=== PATIENT | female | born 1960 | race Caucasian/White ===

== ENCOUNTER → 2016-06-15 | Outpatient (CLI) | payer MEDICARE ==
[~2016-06-15] MED LIST: ALBUTEROL SULFAT3 M3 IH; ALLEGRA 180MG180 MG SQ; ALLEGRA30 MG PO; AMITRIPTYLINE H50 M1 PO; AMOXICILLIN 50500 MG PO; BENADRYL25 MG PO; BENADRYL50 MG PO; BIAXIN 250MG T250 MG PO; BIAXIN FILMTAB500 MG PO; BIAXIN250 MG PO; BUTORPHANOL10 MG/M1 NS; CAL-CITRATE PLU1 TAB PO; CALCIUM + D 6001 TA1 PO; CALCIUM W/VITAM1 TAB PO; CARAFATE S1 GM/10 ML PO; CIPRO 500MG TA500 MG PO; CLEOCIN HC150 MG/CAP PO; CLEOCIN HCL300 MG PO; COUMADIN 1MG1 MG/TAB PO; COUMADIN 3MG3 MG/TAB PO; COUMADIN 6MG6 MG/TAB PO; COUMADIN1 MG PO; COUMADIN4 MG PO; DARVOCET N; DARVOCET N 101 UDTAB PO; DARVOCET-N-101 UDTAB PO; DILAUDID 2MG TAB2 MG PO; DILAUDID 4MG TAB4 MG PO; DOXYCYCLINE 10100 MG PO; ELAVIL10 MG PO; ELITE MAGNESIUM1 TAB PO; FISH OIL1 IU PO; FLAGYL500 MG PO; FLEXERIL 1010 MG/TAB PO; FLEXERIL10 MG PO; GAMUNEX-C1 GM/10 ML IJ; GUAIFENESIN DM118 ML PO; K-DUR 10 MEQ T10 MEQ PO; K-DUR 2020 MEQ PO; KEPPRA 500MG500 MG PO; KEPPRA250 MG PO; KLONOPIN 1MG1 MG PO; KLOR-CON 1010 MEQ; LAMICTAL25 MG PO; LASIX 20MG TABL20 MG PO; LASIX 40MG TABL40 MG PO; LEVAQUIN 250MG250 MG PO; LEVAQUIN 5500 MG/TA1 PO; LEVAQUIN 5500 MG/TAB PO; LEVAQUIN 750MG750 M1 PO; LEVAQUIN250 MG PO; LIPITOR 10MG10 MG PO; LIPITOR 40MG TA40 MG PO; LORTAB 5/500 501 TAB PO; LOVENOX 100100 MG/ML SQ; LOVENOX 8080 MG/0.8 SQ; LOVENOX120 MG/0.8 SQ; LYRICA50 MG PO; M2 MAGNESIUM100 MG PO; MAG-OX 400400 MG PO; MAGNESIUM250 M1 PO; MICRO-K 1010 MEQ PO; MINOCYCLIN100 MG/CAP PO; MUCINEX 60600 MG/TA1 PO; MULTI VITAMINS1 TAB PO; MULTIPLE VITAMI1 TAB PO; NEURONTIN300 MG/CAP PO; NEURONTIN400 MG/CAP PO; NITROSTAT0.4 MG/TAB SL; OMNICEF 300MG300 MG PO; OXYCODONE; OXYCODONE20 MG PO; OXYCONTIN 20MG20 MG PO; OXYCONTIN10 MG PO; OXYCONTIN20 MG PO; OXYCONTIN30 MG PO; OXYCONTIN40 MG PO; PEPCID 20MG TAB20 MG PO; PERCOCET 325 MG1 TA2 PO; PHENERGAN 25 TA25 MG PO; PHENERGAN W/CO120 M1 PO; PHENERGAN25 MG RC; POTASSIUM CH2 MEQ/ML PO; PREDNISONE10 MG PO; PROMETHAZINE12.5 M5 PO; PROZAC 10MG10 MG PO; ROXICODONE15 MG PO; STADOL NASA25 MG/BOT NS; STADOL NS10 MG/ML NS; SUDAFED30 MG PO; SUPER EPA 1201200 MG PO; TESSALON P100 MG/CAP PO; TESSALON PERLE200 MG PO; TOPROL XL 50MG50 MG PO; TOPROL XL100 MG PO; TOPROL XL50 MG PO; TRICOR145 MG PO; TYLENOL 325MG325 MG PO; ULTRAM 50MG TAB50 MG PO; ULTRAM50 MG PO; VALIUM 5MG T5 MG/TAB PO; VENTOLIN0.09 MG IH; ZETIA 10MG TAB10 MG PO; ZINC10 M1 PO; ZINC50 M1 PO; ZITHROMAX Z PA250 MG PO; ZOCOR 10MG10 MG PO; ZOCOR10 MG PO; ZOCOR40 MG PO; ZOFRAN 4MG T4 MG/TAB PO; ZOFRAN ODT4 MG PO; ZONEGRAN 100MG100 MG; ZONEGRAN 100MG100 MG PO; ZYRTEC 10MG PO; ZYRTEC 10MG10 MG PO; ZYRTEC10 MG PO; [UNRECOGNIZED DRUG - OTHER]; [UNRECOGNIZED DRUG - OTHER] SQ; [UNRECOGNIZED DRUG - OTHER] SQ
== END ==
LOC: COL.RAD 06-11 11:30
DX: J84.10 Pulmonary fibrosis, unspecified (principal)
CPT/HCPCS: Q9967

== ENCOUNTER 2016-07-22 15:14 | Emergency (ER) | payer MEDICARE ==
[~2016-07-22] VITALS: Ht 162.6 cm; Wt 72.7 kg
[~2016-07-22 15:14] MED LIST changes: -NEURONTIN300 MG/CAP PO; -NEURONTIN400 MG/CAP PO
[2016-07-22 15:21] VITALS: TEMP 98.8
[2016-07-22 17:26] VITALS: BP 144/80; PULSE 88
== END 2016-07-22 17:32 | disposition home or self-care (01) ==
LOC: COL.ER 15:14
DX: G43.909 Migraine, unspecified, not intractable, without status migrainosus (principal)
CPT/HCPCS: J0595; J1170; J2550; J7030

== ENCOUNTER 2016-09-10 15:38 | Emergency (ER) | payer MEDICARE ==
[~2016-09-10] VITALS: Ht 160 cm; Wt 68.2 kg
[2016-09-10 15:42] VITALS: BP 165/91; TEMP 98.6
[2016-09-10 16:47] LABS: BASO # 0.1 (0.0-0.2); BASO % 0.3 % (0.0-2.0); GRAN # 14.6 (1.4-6.5); GRAN % 88.7 % (42.2-75.2); HEMATOCRIT 41.3 % (37.0-47.0); LYMPH % 6.2 % (20.0-51.0); MEAN CELL VOLUME 87 fl (80.0-100.0); MEAN CORPUSCULAR HEMOGLOBIN 30 pg (27.0-31.0); MEAN CORPUSCULAR HGB CONC 34 g/dl (33.0-37.0); MEAN PLATELET VOLUME 10.3 fl (7.4-10.4); MONO # 0.7 (0.1-0.6); MONO % 4.3 % (1.7-9.3); PLATELET COUNT 468 K/mm3 (130-400); RED BLOOD COUNT 4.75 M/mm3 (4.10-5.30); WHITE BLOOD COUNT 16.5 K/mm3 (4.8-10.8)
[2016-09-10 16:58] LABS: ADJUSTED CALCIUM 9.6 mg/dL (8.4-10.2); ALBUMIN 4.9 gm/dL (3.5-5.0); BILIRUBIN,TOTAL 0.8 mg/dL (0.0-1.0); CALCIUM 10.3 mg/dL (8.4-10.2); CREATININE, serum 0.71 mg/dL (0.52-1.25); POTASSIUM 3.4 mmol/L (3.4-5.0); TOTAL PROTEIN 8.4 gm/dL (6.4-8.2)
[2016-09-10] MEDS ORDERED: PHENERGAN 25 TA25 MG PO (17:45)
[2016-09-10 18:38] VITALS: PULSE 79
== END 2016-09-10 18:40 | disposition home or self-care (01) ==
LOC: COL.ER 15:38
PROVIDERS: Physician Assistant
DX: G43.909 Migraine, unspecified, not intractable, without status migrainosus (principal); B34.9 Viral infection, unspecified; R11.2 Nausea with vomiting, unspecified; F17.210 Nicotine dependence, cigarettes, uncomplicated; Z95.2 Presence of prosthetic heart valve; Z79.01 Long term (current) use of anticoagulants; R05 Cough; R19.7 Diarrhea, unspecified
CPT/HCPCS: J1170; J2405; J2550; J7030; J7040

== ENCOUNTER 2016-09-22 15:13 | Inpatient (IN) | payer MEDICARE ==
[~2016-09-22] VITALS: Ht 160 cm; Wt 76.4 kg
[2016-09-22] VITALS (341 sets, daily range): BP systolic 103–111; BP diastolic 50–59; PULSE 77–80; TEMP 97.5–97.6; O2SAT 89–99
[2016-09-22 16:01] LABS: ARTERIAL BLD GAS TCO2 CT 29.9; ARTERIAL BLOOD GAS BASE EXCESS 0.6 (-2-2); ARTERIAL BLOOD GAS HCO3 28.1 meq/L (22-26); ARTERIAL BLOOD GAS PO2 61.9 mmHg (80-100); ARTERIAL BLOOD GAS PO2T 61.9 (80-100); OXYHEMOGLOBIN 87.9 %
[2016-09-22 16:02] LABS: ATS? YES
[2016-09-22 16:11] LABS: BASO % 0.5 % (0.0-2.0); EOS # 0.3 (0.0-0.7); EOS % 3.3 % (0-4.0); GRAN % 70.2 % (42.2-75.2); HEMATOCRIT 37.5 % (37.0-47.0); HEMOGLOBIN 12.3 g/dl (12.5-16.0); LYMPH # 1.6 (1.2-3.4); LYMPH % 18.7 % (20.0-51.0); MEAN CELL VOLUME 91 fl (80.0-100.0); MEAN CORPUSCULAR HEMOGLOBIN 30 pg (27.0-31.0); MEAN CORPUSCULAR HGB CONC 33 g/dl (33.0-37.0); MONO # 0.6 (0.1-0.6); MONO % 7.1 % (1.7-9.3); PLATELET COUNT 322 K/mm3 (130-400); RED BLOOD COUNT 4.14 M/mm3 (4.10-5.30); REDCELL DISTRIBUTION WIDTH-CV 13.7 % (11.5-14.5); WHITE BLOOD COUNT 8.5 K/mm3 (4.8-10.8)
[2016-09-22 16:18] LABS: ADJUSTED CALCIUM 9.1 mg/dL (8.4-10.2); ALANINE AMINOTRANSFERASE 27 U/L (9-52); ALBUMIN 4.2 gm/dL (3.5-5.0); ALKALINE PHOSPHATASE 111 U/L (50-136); ANION GAP 10 mmol/L (7-16); BILIRUBIN,TOTAL 0.5 mg/dL (0.0-1.0); BLOOD UREA NITROGEN 8 mg/dL (7-17); C-REACTIVE PROTEIN 1.7 mg/dL (0.0-0.9); CALCIUM 9.3 mg/dL (8.4-10.2); CARBON DIOXIDE 29 mmol/L (22-30); CHLORIDE 100 mmol/L (98-107); CREATININE, serum 0.96 mg/dL (0.52-1.25); GLUCOSE 102 mg/dL (74-106); POTASSIUM 3.7 mmol/L (3.4-5.0); SODIUM 139 mmol/L (137-145); TOTAL PROTEIN 7.1 gm/dL (6.4-8.2)
[2016-09-22 16:27] LABS: INR 3.7 (0.8-3.0); PROTHROMBIN TIME 42.8 SECONDS (9.7-12.8)
[2016-09-22 16:28] LABS: TROPONIN-I < 0.012 ng/mL (0.000-0.034)
[2016-09-22 16:30] LABS: PARTIAL THROMBOPLASTIN TIME 56.7 SECONDS (26.0-37.0)
[2016-09-22 17:57] LABS: PH 5 (5-8); SQUAMOUS EPITHELIAL 0-2 /hpf; URINE APPEARANCE Clear; URINE BACTERIA None Seen /hpf; URINE BILIRUBIN Negative (NEGATIVE); URINE BLOOD Negative (NEGATIVE); URINE COLOR Yellow; URINE GLUCOSE Negative (NEGATIVE); URINE KETONE Negative (NEGATIVE); URINE RBC 0-2 /hpf; URINE UROBILINOGEN Negative (NEGATIVE); URINE WBC 0-2 /hpf
[2016-09-22 18:11] LABS: AMPHETAMINE URINE NEGATIVE; BARBITURATES URINE NEGATIVE; BENZODIAZEPINES URINE POSITIVE; BUPRENORPHINE URINE NEGATIVE; METHADONE URINE NEGATIVE; OPIATES URINE NEGATIVE; OXYCODONE URINE POSITIVE; PHENCYCLIDINE URINE NEGATIVE; PROPOXYPHENE URINE NEGATIVE; THC CANNABINOIDS URINE NEGATIVE
[2016-09-23] VITALS (510 sets, daily range): BP systolic 85–124; BP diastolic 53–72; PULSE 75–98; TEMP 97.9–98.9; O2SAT 87–100
[2016-09-23 06:05] LABS: BASO % 0.5 % (0.0-2.0); EOS # 0.2 (0.0-0.7); EOS % 3.7 % (0-4.0); GRAN # 3.6 (1.4-6.5); GRAN % 66.6 % (42.2-75.2); LYMPH # 1.1 (1.2-3.4); LYMPH % 20.8 % (20.0-51.0); MEAN CELL VOLUME 92 fl (80.0-100.0); MEAN CORPUSCULAR HGB CONC 33 g/dl (33.0-37.0); MEAN PLATELET VOLUME 10.7 fl (7.4-10.4); MONO # 0.4 (0.1-0.6); PLATELET COUNT 264 K/mm3 (130-400); RED BLOOD COUNT 3.68 M/mm3 (4.10-5.30); REDCELL DISTRIBUTION WIDTH-CV 14.1 % (11.5-14.5); WHITE BLOOD COUNT 5.5 K/mm3 (4.8-10.8)
[2016-09-23 06:06] LABS: HEMATOCRIT 33.7 % (37.0-47.0); MEAN CORPUSCULAR HEMOGLOBIN 30 pg (27.0-31.0)
[2016-09-23 06:17] LABS: CALCIUM 8.5 mg/dL (8.4-10.2); CREATININE, serum 0.8 mg/dL (0.52-1.25); POTASSIUM 3.8 mmol/L (3.4-5.0)
[2016-09-23 06:26] LABS: PROTHROMBIN TIME 46.2 SECONDS (9.7-12.8)
[2016-09-23] MEDS ORDERED: NEURONTIN400 MG/CAP PO (14:31)
[2016-09-23] MEDS ORDERED: COUMADIN 3MG3 MG/TAB PO (14:39)
== END 2016-09-23 16:59 | disposition home or self-care (01) | DRG 917 ==
LOC: COL.ER 15:13 → IMCU 17:21 → MEDICAL 09-23 09:46
PROVIDERS: Emergency Medicine; Family Medicine
DX: T40.2X1A Poisoning by other opioids, accidental (unintentional), initial encounter (principal); J96.01 Acute respiratory failure with hypoxia; J96.02 Acute respiratory failure with hypercapnia; D80.1 Nonfamilial hypogammaglobulinemia; T42.4X1A Poisoning by benzodiazepines, accidental (unintentional), initial encounter; R41.82 Altered mental status, unspecified; G43.909 Migraine, unspecified, not intractable, without status migrainosus; F17.210 Nicotine dependence, cigarettes, uncomplicated; Z95.2 Presence of prosthetic heart valve; Z86.73 Personal history of transient ischemic attack (TIA), and cerebral infarction without residual deficits; Z79.01 Long term (current) use of anticoagulants
CPT/HCPCS: 99223-AI; 99239; J2310; J2405; J7030

== ENCOUNTER → 2016-09-27 | Outpatient (CLI) | payer MEDICARE ==
[~2016-09-27] MED LIST changes: +NEURONTIN300 MG/CAP PO; +NEURONTIN400 MG/CAP PO
== END ==
LOC: MC.RAD 10:40
DX: Z12.31 Encounter for screening mammogram for malignant neoplasm of breast (principal)

== ENCOUNTER 2017-01-01 15:54 | Inpatient (IN) | payer MEDICARE ==
[~2017-01-01] VITALS: Ht 160 cm; Wt 76.9 kg
[2017-01-01] VITALS (242 sets, daily range): BP systolic 121–132; BP diastolic 74–87; PULSE 85–91; TEMP 97.1; O2SAT 94–100
[~2017-01-01 15:54] MED LIST changes: -NEURONTIN300 MG/CAP PO
[2017-01-01 16:54] LABS: ARTERIAL BLD GAS O2 SATURATION 87.9 % (92-100); ARTERIAL BLD GAS TCO2 CT 29.7; ARTERIAL BLOOD GAS BASE EXCESS 0.8 (-2-2); ARTERIAL BLOOD GAS PHT 7.31 C (7.35-7.45); ARTERIAL BLOOD GAS pH 7.31 (7.35-7.45); OXYHEMOGLOBIN 85.8 %
[2017-01-01 16:55] LABS: ATS? YES
[2017-01-01 17:15] LABS: BASO # 0.1 (0.0-0.2); BASO % 0.5 % (0.0-2.0); EOS # 0.5 (0.0-0.7); EOS % 4.9 % (0-4.0); GRAN # 6.4 (1.4-6.5); GRAN % 68.7 % (42.2-75.2); HEMATOCRIT 37.1 % (37.0-47.0); HEMOGLOBIN 12.1 g/dl (12.5-16.0); LYMPH # 1.4 (1.2-3.4); LYMPH % 15.4 % (20.0-51.0); MEAN CELL VOLUME 89 fl (80.0-100.0); MEAN CORPUSCULAR HEMOGLOBIN 29 pg (27.0-31.0); MEAN CORPUSCULAR HGB CONC 33 g/dl (33.0-37.0); MONO % 10.1 % (1.7-9.3); PLATELET COUNT 312 K/mm3 (130-400); RED BLOOD COUNT 4.17 M/mm3 (4.10-5.30); REDCELL DISTRIBUTION WIDTH-CV 13.9 % (11.5-14.5); WHITE BLOOD COUNT 9.4 K/mm3 (4.8-10.8)
[2017-01-01 17:31] LABS: ADJUSTED CALCIUM 8.9 mg/dL (8.4-10.2); ALANINE AMINOTRANSFERASE 24 U/L (9-52); ALBUMIN 4.1 gm/dL (3.5-5.0); ALKALINE PHOSPHATASE 119 U/L (50-136); ANION GAP 9 mmol/L (7-16); BILIRUBIN,TOTAL 0.9 mg/dL (0.0-1.0); BLOOD UREA NITROGEN 7 mg/dL (7-17); CARBON DIOXIDE 27 mmol/L (22-30); CHLORIDE 100 mmol/L (98-107); CREATININE, serum 0.79 mg/dL (0.52-1.25); GLUCOSE 93 mg/dL (74-106); POTASSIUM 3.9 mmol/L (3.4-5.0); SODIUM 136 mmol/L (137-145)
[2017-01-01 17:34] LABS: AMPHETAMINE URINE NEGATIVE; BARBITURATES URINE NEGATIVE; BENZODIAZEPINES URINE POSITIVE; BUPRENORPHINE URINE NEGATIVE; METHADONE URINE NEGATIVE; OPIATES URINE POSITIVE; OXYCODONE URINE POSITIVE; PHENCYCLIDINE URINE NEGATIVE; PROPOXYPHENE URINE NEGATIVE; THC CANNABINOIDS URINE NEGATIVE
[2017-01-01 17:40] LABS: ACETAMINOPHEN < 10 ug/mL (10-30); SALICYLATE < 1.0 mg/dL
[2017-01-01 17:41] LABS: B-TYPE NATRIURETIC PEPTIDE 283 pg/mL (0-125)
[2017-01-01 17:43] LABS: TROPONIN-I < 0.012 ng/mL (0.000-0.034)
[2017-01-01 17:46] LABS: INR 2.7 (0.8-3.0); PROTHROMBIN TIME 31.6 SECONDS (9.7-12.8)
[2017-01-01 22:54] LABS: PH 5 (5-8); SQUAMOUS EPITHELIAL 0-2 /hpf; URINE APPEARANCE Clear; URINE BACTERIA None Seen /hpf; URINE BILIRUBIN Negative (NEGATIVE); URINE BLOOD 1+ (NEGATIVE); URINE COLOR Straw; URINE GLUCOSE Negative (NEGATIVE); URINE KETONE Negative (NEGATIVE); URINE RBC 0-2 /hpf; URINE UROBILINOGEN Negative (NEGATIVE); URINE WBC 0-2 /hpf
[2017-01-02] VITALS (734 sets, daily range): BP systolic 126–158; BP diastolic 65–92; PULSE 86–106; TEMP 97–98.6; O2SAT 96–100
[2017-01-02 06:15] LABS: BASO % 0.6 % (0.0-2.0); EOS # 0.3 (0.0-0.7); EOS % 4.8 % (0-4.0); GRAN % 72.9 % (42.2-75.2); LYMPH # 0.9 (1.2-3.4); LYMPH % 13.2 % (20.0-51.0); MEAN CELL VOLUME 90 fl (80.0-100.0); MEAN CORPUSCULAR HGB CONC 33 g/dl (33.0-37.0); MEAN PLATELET VOLUME 10.1 fl (7.4-10.4); MONO # 0.6 (0.1-0.6); MONO % 8.2 % (1.7-9.3); PLATELET COUNT 285 K/mm3 (130-400); RED BLOOD COUNT 3.99 M/mm3 (4.10-5.30); WHITE BLOOD COUNT 6.9 K/mm3 (4.8-10.8)
[2017-01-02 06:16] LABS: HEMOGLOBIN 11.7 g/dl (12.5-16.0); MEAN CORPUSCULAR HEMOGLOBIN 29 pg (27.0-31.0)
[2017-01-02 06:31] LABS: CALCIUM 8.6 mg/dL (8.4-10.2); CREATININE, serum 0.62 mg/dL (0.52-1.25); MAGNESIUM 1.5 mg/dL (1.6-2.3); POTASSIUM 3.5 mmol/L (3.4-5.0)
[2017-01-02 08:38] LABS: ARTERIAL BLD GAS TCO2 CT 26.9; ARTERIAL BLOOD GAS BASE EXCESS -0.3 (-2-2); ARTERIAL BLOOD GAS HCO3 25.5 meq/L (22-26); ARTERIAL BLOOD GAS PHT 7.36 C (7.35-7.45); ARTERIAL BLOOD GAS PO2 88.2 mmHg (80-100); ARTERIAL BLOOD GAS PO2T 88.2 (80-100); ARTERIAL BLOOD GAS pH 7.36 (7.35-7.45); OXYHEMOGLOBIN 95.2 %
[2017-01-02 08:39] LABS: ATS? YES
[2017-01-02] MEDS ORDERED: NEURONTIN300 MG/CAP PO (16:27)
[2017-01-02] MEDS ORDERED: COUMADIN4 MG PO (16:55)
[2017-01-03 04:22] VITALS: BP 118/83; PULSE 84; TEMP 97.9
[2017-01-03 06:57] LABS: INR 2.2 (0.8-3.0); PROTHROMBIN TIME 25.5 SECONDS (9.7-12.8)
[2017-01-03 07:09] LABS: CALCIUM 8.6 mg/dL (8.4-10.2); CREATININE, serum 0.57 mg/dL (0.52-1.25); MAGNESIUM 1.9 mg/dL (1.6-2.3); POTASSIUM 3.1 mmol/L (3.4-5.0)
[2017-01-03 07:50] VITALS: BP 142/81; PULSE 79; TEMP 98.5
== END 2017-01-03 12:55 | disposition home or self-care (01) | DRG 917 ==
LOC: COL.ER 15:54 → ICU 17:52 → COL.ER 17:52 → MEDICAL 01-02 14:18
PROVIDERS: Emergency Medicine; Internal Medicine
DX: T42.6X1A Poisoning by other antiepileptic and sedative-hypnotic drugs, accidental (unintentional), initial encounter (principal); J96.02 Acute respiratory failure with hypercapnia; J96.01 Acute respiratory failure with hypoxia; D80.1 Nonfamilial hypogammaglobulinemia; L03.116 Cellulitis of left lower limb; F17.210 Nicotine dependence, cigarettes, uncomplicated; F11.90 Opioid use, unspecified, uncomplicated; Z79.01 Long term (current) use of anticoagulants; Z95.2 Presence of prosthetic heart valve; Z86.73 Personal history of transient ischemic attack (TIA), and cerebral infarction without residual deficits
CPT/HCPCS: 90791-AI; 99223-AI; 99233-AI; J3370; J3475; J7030; J7050

== ENCOUNTER 2017-09-04 12:38 | Emergency (ER) | payer OTHER, MEDICARE ==
[~2017-09-04] VITALS: Ht 160 cm; Wt 75.9 kg
[~2017-09-04 12:38] MED LIST changes: +NEURONTIN300 MG/CAP PO
[2017-09-04 13:33] VITALS: BP 125/76; PULSE 90; TEMP 98.1
[2017-09-04] MEDS ORDERED: ROXICODONE15 MG PO (13:37)
== END 2017-09-04 14:55 | disposition home or self-care (01) ==
LOC: COL.ER 12:38
DX: S73.102A Unspecified sprain of left hip, initial encounter (principal); S73.101A Unspecified sprain of right hip, initial encounter; G43.909 Migraine, unspecified, not intractable, without status migrainosus; G89.29 Other chronic pain; Z79.01 Long term (current) use of anticoagulants; V49.60XA Unspecified car occupant injured in collision with unspecified motor vehicles in traffic accident, initial encounter

== ENCOUNTER → 2017-10-31 | Outpatient (CLI) | payer MEDICARE | LOC: COL.VAS 13:52 | DX: M79.89 Other specified soft tissue disorders (principal); M79.605 Pain in left leg ==

== ENCOUNTER 2019-04-17 14:28 | Emergency (ER) | payer MEDICARE ==
[~2019-04-17] VITALS: Ht 157.5 cm; Wt 59.1 kg
[2019-04-17 15:27] LABS: HEMATOCRIT 41.2 % (37.0-47.0); HEMOGLOBIN 14.3 g/dl (12.5-16.0); MEAN CELL VOLUME 86 fl (80.0-100.0); MEAN CORPUSCULAR HEMOGLOBIN 30 pg (27.0-31.0); MEAN CORPUSCULAR HGB CONC 35 g/dl (33.0-37.0); MEAN PLATELET VOLUME 11.2 fl (7.4-10.4); PLATELET COUNT 415 K/mm3 (130-400); RED BLOOD COUNT 4.78 M/mm3 (4.10-5.30); REDCELL DISTRIBUTION WIDTH-CV 13.2 % (11.5-14.5)
[2019-04-17 15:36] LABS: INR 5.3 (0.8-3.0); PROTHROMBIN TIME 65.6 SECONDS (9.7-12.8)
[2019-04-17 15:41] LABS: LACTIC ACID 1.6 mmol/L (0.4-2.0)
[2019-04-17 15:42] LABS: ALANINE AMINOTRANSFERASE 21 U/L (9-52); ALBUMIN 4.3 gm/dL (3.5-5.0); ALKALINE PHOSPHATASE 88 U/L (50-136); ANION GAP 22 mmol/L (7-16); AST,SGOT 34 U/L (15-37); BILIRUBIN,TOTAL 0.7 mg/dL (0.0-1.0); BLOOD UREA NITROGEN 109 mg/dL (7-17); C-REACTIVE PROTEIN 7.9 mg/dL (0.0-0.9); CALCIUM 8.4 mg/dL (8.4-10.2); CARBON DIOXIDE 30 mmol/L (22-30); GLUCOSE 149 mg/dL (74-106); MAGNESIUM 2.3 mg/dL (1.6-2.3); SODIUM 128 mmol/L (137-145); TOTAL PROTEIN 7.2 gm/dL (6.4-8.2)
[2019-04-17 15:45] LABS: CREATININE, serum 9.64 (0.52-1.25)
[2019-04-17 16:00] LABS: LYMPHOCYTE 7 % (20.0-51.0); NEUTROPHILS 87 % (42.0-75.2); PLATELET ESTIMATE INCREASED (NORMAL); SPHEROCYTE 1+
[2019-04-17 16:05] LABS: CHLORIDE 76 mmol/L (98-107); POTASSIUM 2.9 mmol/L (3.4-5.0)
[2019-04-17 16:06] LABS: ACETAMINOPHEN < 10 ug/mL (10-30); ALCOHOL(ethanol),MEDICAL < 10 mg/dL; PHOSPHOROUS 12.6 mg/dL (2.5-4.5); SALICYLATE < 1.0 mg/dL; TROPONIN-I 0.066 ng/mL (0.000-0.035)
[2019-04-17 16:09] LABS: COLLECTION METHOD CATHETER
[2019-04-17 16:12] LABS: STREP SCREEN NEGATIVE
[2019-04-17 16:19] LABS: MUCOUS Present /lpf; PH 5 (5-8); URINE APPEARANCE Cloudy; URINE BACTERIA Rare /hpf; URINE BILIRUBIN Negative (NEGATIVE); URINE BLOOD 1+ (NEGATIVE); URINE COLOR Amber; URINE GLUCOSE 1+ (NEGATIVE); URINE KETONE Trace (NEGATIVE); URINE LEUKOCYTE ESTERASE Negative (NEGATIVE); URINE NITRATE Negative (NEGATIVE); URINE PROTEIN(semi-quant) 2+ (NEGATIVE); URINE UROBILINOGEN Negative (NEGATIVE)
[2019-04-17 16:36] LABS: TRICYCLIC ANTIDEPRESS URINE NEGATIVE
[2019-04-17] MEDS ORDERED: FLEXERIL 1010 MG/TAB PO (16:44)
[2019-04-17] MEDS ORDERED: K-DUR20 MEQ PO (16:46)
[2019-04-17 19:13] VITALS: BP 90/58; PULSE 68; TEMP 98.4
== END 2019-04-17 19:15 | disposition short-term general hospital (02) ==
LOC: COL.ER 14:28
PROVIDERS: Emergency Medicine
DX: R41.82 Altered mental status, unspecified (principal); N39.0 Urinary tract infection, site not specified; N17.9 Acute kidney failure, unspecified; I95.9 Hypotension, unspecified; J45.909 Unspecified asthma, uncomplicated; G89.29 Other chronic pain; F17.210 Nicotine dependence, cigarettes, uncomplicated; Z79.01 Long term (current) use of anticoagulants; Z86.73 Personal history of transient ischemic attack (TIA), and cerebral infarction without residual deficits; Z98.890 Other specified postprocedural states
CPT/HCPCS: J0692; J3480; J7030